=== PATIENT | male | born 1955 | race Caucasian/White ===

== ENCOUNTER 2019-12-15 16:53 | Emergency (ER) | payer BC, OTHER ==
--- NOTE | 2019-12-15 17:36 | ERPHSYRPT ---
- History of Present Illness Time Seen by Provider: 12/15/19 17:00 Source: patient Exam Limitations: no limitations Patient Subjective Stated Complaint: Pt states "I twisted my knee a couple of weeks ago and about two hours ago I was stepping out of a truck and felt a pop and it really really hurts." Triage Nursing Assessment: Pt presented alert and oriented X 3, skin pwd Pt ambulates with a limp. no swelling or bruising noted to left knee. Physician History: twisted L knee on ladder 2 wks ago. pain but got better. Today Twisted knee agin flet/heard "pop" and pain inL knee agin. Increased wit flex/ext and wt bearing. Method of Injury: twisted Occurred: just prior to arrival Quality: sharpness, throbbing Severity of Pain-Max: moderate Severity of Pain-Current: moderate Lower Extremities Pain: knee: left (stable, quad mech ok, no effusion, Pos drawer sign) Modifying Factors: Improves With: movement Associated Symptoms: popping sensation Allergies/Adverse Reactions: No Known Drug Allergies Allergy (Verified 12/15/19 17:05) Home Medications: Carvedilol 12.5 mg [Coreg 12.5 mg] 12.5 mg PO DAILY 12/15/19 [History] Clopidogrel Bisulfate [Clopidogrel] 75 mg PO DAILY 12/15/19 [History] Fenofibrate,Micronized [Fenofibrate] 134 mg PO DAILY 12/15/19 [History] Rosuvastatin Calcium [Crestor] 10 mg PO DAILY 12/15/19 [History] Hx Tetanus, Diphtheria Vaccination/Date Given: No Hx Influenza Vaccination/Date Given: Yes Hx Pneumococcal Vaccination/Date Given: No Immunizations Up to Date: Yes Travel Risk - International Travel Have you traveled outside of the country in past 3 weeks: No Have you or anyone close to you been diagnosed with or: No Do your reside in a community with a known COVID-19 case?: Yes If Yes where:: [place] - Coronavirus Screening Has patient experienced Coronavirus symptoms: No - Review of Systems Constitutional: No Fever, No Chills Eyes: No Symptoms Ears, Nose, & Throat: No Symptoms Respiratory: No Cough, No Dyspnea Cardiac: No Chest Pain, No Edema, No Syncope Abdominal/Gastrointestinal: No Abdominal Pain, No Nausea, No Vomiting, No Diarrhea Genitourinary Symptoms: No Dysuria Musculoskeletal: Joint Pain, No Back Pain, No Neck Pain Skin: No Rash Neurological: No Dizziness, No Focal Weakness, No Sensory Changes Psychological: No Symptoms Endocrine: No Symptoms All Other Systems: Reviewed and Negative - Past Medical History Pertinent Past Medical History: Yes Respiratory History: No Pertinent History Endocrine Medical History: No Pertinent History Musculoskeletal History: No Pertinent History GI Medical History: Diverticulosis History: No Pertinent History Psycho-Social History: No Pertinent History Male Reproductive Disorders: No Pertinent History Other Medical History: left bundle branch block. htn - Past Surgical History Past Surgical History: Yes Other Surgical History: carpal tunnel - Social History Smoking Status: Current every day smoker How long have you smoked: years Exposure to second hand smoke: Yes Drug Use: none Patient Lives Alone: No - Nursing Vital Signs Nursing Vital Signs: Initial Vital Signs Temperature 98.2 F 12/15/19 16:59 Pulse Rate 77 12/15/19 16:59 Respiratory Rate 20 12/15/19 16:59 Blood Pressure 161/83 12/15/19 16:59 O2 Sat by Pulse Oximetry 97 12/15/19 16:59 Pain Scale Pain Intensity 6 - Physical Exam General Appearance: mild distress, alert Eyes, Ears, Nose, Throat Exam: moist mucous membranes Neck Exam: non-tender, supple Cardiovascular/Respiratory Exam: chest non-tender, normal breath sounds, regular rate/rhythm, no respiratory distress Gastrointestinal/Abdominal Exam: non-tender, guarding Back Exam: normal inspection, No vertebral tenderness Knees Exam: right knee: non-tender, normal inspection, normal range of motion, no evidence of injury, left knee: pain (pain with ext/flex), soft tissue tenderness DTR - Lower Extremities Exam: knee (R): 2+, knee (L): 2+ Neuro/Tendon Exam: normal sensation, normal motor functions Mental Status Exam: alert, oriented x 3, cooperative Skin Exam: normal color, warm, dry SpO2 Interpretation: normal SpO2: 97 O2 Delivery: Room Air - Course Nursing assessment & vital signs reviewed: Yes - Radiology Exams Knee X-ray Interpretation: Interpreted by me, No Fracture, No Subluxation, Nml Soft Tissues Ordered Tests: Active Orders 24 hr Category Date Time Status Splint STAT Care 12/15/19 17:29 Active KNEE (3 VIEWS) Stat Exams 12/15/19 17:02 Taken - Progress Progress: unchanged - Departure Departure Disposition: Home Clinical Impression: Strain of left knee Condition: Stable Critical Care Time: No Referrals: JONG NEFF [NON-STAFF PHY W/O PRIVILEGES] - Instructions: Knee Sprain (DC), Knee Pain (DC) Prescriptions: Hydrocodone/APAP 5-325 Tab^^^ [Cardwell 5-325 Tablet^^^] 1 tab PO Q6HPRN PRN #10 tablet MDD 6 PRN Reason: Pain
[2019-12-15 17:56] VITALS: O2SAT 98
[2019-12-15 18:08] VITALS: BP 132/79; PULSE 96
--- NOTE | 2019-12-15 19:28 | XRAY ---
Indication: Pain following twisting injury. Comparison: None 3 view left knee demonstrates mild medial joint space narrowing and mild vascular calcifications. No other bony, articular, or soft tissue abnormalities.
== END 2019-12-15 18:08 | disposition home or self-care (01) ==
LOC: ED 16:53
DX: S83.92XA Sprain of unspecified site of left knee, initial encounter (principal); M25.562 Pain in left knee; X50.9XXA Other and unspecified overexertion or strenuous movements or postures, initial encounter
CPT/HCPCS: 73562; 99283; L1830

== ENCOUNTER 2022-02-10 09:24 | Emergency (ER) | payer MEDICARE ==
[2022-02-10 09:51] LABS: Absolute Neutrophil Ct (ANC) 9.72 x10^3/uL (1.4-6.9); Basophil (Absolute #) 0.07 x10^3/uL (0-0.4); Eosinophil % 4.7 % (0.00-5.0); Hematocrit 43.6 % (42-50); Hemoglobin 14.8 g/dL (12.5-18.0); Lymphocyte (Absolute #) 1.32 x10^3/uL (1.0-4.6); Lymphocytes % 10.2 % (24.0-44.0); Mean Cell Volume 93.8 fL (78-100); Mean Corpuscular Hemoglobin 31.8 pg (26-32); Mean Corpuscular Hgb Concent. 33.9 g/dL (32-36); Mean Platelet Volume 10.2 fL (7.5-11.0); Monocyte (Absolute #) 1.14 x10^3/uL (0.0-1.3); Monocytes % 8.8 % (0.0-12.0); Neutrophil % 75.4 % (36.0-66.0); Platelet Count 220 x10^3/uL (150-450); Red Blood Count 4.65 x10^6/uL (4.1-5.6); Red Cell Distribution Width 13.4 % (11.5-14.0); White Blood Count 12.9 x10^3/uL (4.0-10.5)
--- NOTE | 2022-02-10 10:07 | XRAY ---
Indication: Short of breath. Comparison: None Portable chest hyperinflated with chronic interstitial lung markings. No focal infiltrate, consolidation, or large effusion. Heart not enlarged for AP portable technique with incidental cardiac valve replacement. Bony thorax intact with mild osteopenia and degenerative changes. Impression: Nonacute chest with chronic features.
[2022-02-10 10:13] LABS: ALBUMIN 4.4 g/dL (3.5-5.0); ALKALINE PHOSPHATASE 75 U/L (38-126); AMYLASE 83 U/L (30-110); ANION GAP 14.9 MEQ/L (5-15); BLOOD UREA NITROGEN 18 mg/dL (9-20); CHLORIDE 104 mmol/L (98-107); Calcium 9.5 mg/dL (8.4-10.2); Carbon Dioxide 21 mmol/L (22-30); Creatinine 1 1.25 mg/dL (0.66-1.25); EST GLOMERULAR FILTRATION RATE > 60.0 ML/MIN; Glucose 120 mg/dL (74-106); INR 1.07 (0.8-3.0); LIPASE 61 U/L (23-300); NT PRO BNP 1500 pg/mL (0-900); PROTIME 11.3 SECONDS (9.4-12.5); PTT 30.8 SECONDS (25.1-36.5); Potassium 4.1 mmol/L (3.5-5.1); SGOT/AST 24 U/L (17-59); SGPT/ALT 15 U/L (0-50); SODIUM 136 mmol/L (137-145); Total Protein 7.8 g/dL (6.3-8.2)
[2022-02-10 10:15] LABS: D-DIMER QUANTITATIVE 1.21 mg/L (0.0-0.50)
[2022-02-10 10:17] LABS: Erythrocyte Sedimentation Rate 10 mm/hr (0-15)
[2022-02-10 10:30] LABS: INFLUENZA A NEGATIVE (NEGATIVE); INFLUENZA B NEGATIVE (NEGATIVE); RESPIRATORY SYNCTIAL VIRUS NEGATIVE (Negative); SARS-CoV-2 Xpert Express NEGATIVE (NEGATIVE)
[2022-02-10] MEDS ORDERED: Lasix 40 MG/4 ML ONE (11:01)
[2022-02-10] MEDS: Lasix 40 MG/4 ML IV ONE (11:03)
--- NOTE | 2022-02-10 11:07 | XRAY ---
Indication: Short of breath. Multiple contiguous axial images obtained through the chest using 100 cc Isovue 370 contrast and PE protocol. Comparison: None Good opacification of the pulmonary arteries to include the lobar and segmental branches. Minimal respiration artifact limits evaluation of the more distal segmental branches. No pulmonary embolus. Heart not enlarged with scattered coronary calcifications and prior aortic valve replacement. Aorta is minimally arteriosclerotic without aneurysm/dissection. A few tiny mediastinal and right hilar calcified nodes. No pathologic mediastinal/hilar lymphadenopathy. Lungs demonstrate mild scattered fibrosis/scarring, greatest medial right lower lobe. Tiny right upper and left lower lobe calcified granulomas. No suspicious pulmonary mass, infiltrate, effusion, or pneumothorax. Bony thorax intact with mild osteopenia and moderate degenerative changes throughout the spine. Limited upper abdomen demonstrates mild diffuse fatty liver. Impression: 1. Pulmonary embolus evaluation limited by respiration artifact. No obvious pulmonary embolus or acute cardiopulmonary abnormalities. 2. Incidental scattered fibrosis/scarring, fatty liver, chronic bony findings, and old granulomatous disease.
[2022-02-10 11:47] LABS: Appearance CLEAR (CLEAR); Bilirubin NEGATIVE (NEGATIVE); Dipstick done @ ? MAIN LAB; Glucose NEGATIVE (NEGATIVE); Ketones NEGATIVE (NEGATIVE); Nitrite NEGATIVE (NEGATIVE); Protein,Urine Dip 100 (Negative); RBC NEGATIVE Ery/ul (0-5); Specific Gravity 1.015 (1.005-1.025); Urobilinogen 0.2 mg/dL (0-1)
[2022-02-10 11:51] LABS: Bacteria RARE /HPF (NEGATIVE); Epithelial Cells RARE /HPF (FEW); RBC 0-2 /HPF (0-2); Urine Cultured Indicated? NO; WBC 0-2 /HPF (0-5)
[2022-02-10 12:37] VITALS: BP 133/67; PULSE 66; O2SAT 98
--- NOTE | 2022-02-10 12:49 | ERPHSYRPT ---
- History of Present Illness Time Seen by Provider: 02/10/22 09:35 Historian: patient Exam Limitations: no limitations Patient Subjective Stated Complaint: Pt was in cardiac rehab and his oxygen was running approx 85% on room air and they couldn't raise it, pt is wearing a life vest and states that his EF is 29% Triage Nursing Assessment: Pt brought over from cardiac rehab, hypertensive, denies pain, cough with thick clear sputum, wearing a life vest, PVC's, states that he has a "tickle" in his throat that he didn't have, had valve replaced l ast month 01/09/2022, stents placed on 12/22/2021, states that he has been around covid but has never been tested, pulses normal, skin n,w,diaphoretic Physician History: Patient is a 67-year-old male who was at cardiac rehab and developed some hypoxia O2 sats into the high 80s. 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 He also had some stents placed at the time of the TAVR recently. He denies any chest pain he denies any shortness of breath but was brought here because of his low O2 sat his ejection fraction reportedly is 29%. Timing/Duration: today Activities at Onset: other (In cardiac rehab) Associated Symptoms: shortness of breath Nitro Today/Relief: no nitro taken today Aspirin Treatment Today: 81 mg x 1 Allergies/Adverse Reactions: No Known Drug Allergies Allergy (Verified 02/10/22 09:42) Home Medications: Carvedilol 12.5 mg [Coreg 12.5 mg] 3.25 mg PO DAILY 12/15/19 [History] Clopidogrel Bisulfate [Clopidogrel] 75 mg PO DAILY 12/15/19 [History] Fenofibrate,Micronized [Fenofibrate] 134 mg PO DAILY 12/15/19 [History] Rosuvastatin Calcium [Crestor] 20 mg PO DAILY 12/15/19 [History] Aspirin EC 81 mg [Ecotrin 81 mg] 81 mg PO DAILY 02/10/22 [History] Hydrochlorothiazide 25 mg [hydroDIURIL 25 MG] 25 mg PO DAILY 02/10/22 [History] Metformin HCl 500 mg [Glucophage 500 MG] 500 mg PO DAILY 02/10/22 [History] Sacubitril/Valsartan [Entresto 24 mg-26 mg Tablet] 0.5 tab PO BID 02/10/22 [History] Hx Tetanus, Diphtheria Vaccination/Date Given: No Hx Influenza Vaccination/Date Given: Yes Hx Pneumococcal Vaccination/Date Given: No Travel Risk - International Travel Have you traveled outside of the country in past 3 weeks: No - Coronavirus Screening Are you exhibiting any of the following symptoms?: No Close contact with a COVID-19 positive Pt in past 14-21 Days: No - Vaccine Status Have you recieved a Covid-19 vaccination: Yes Sap Analyst: Moderna - Vaccination Dates Date of 2cond Vaccination (if applicable): 11/2020 - Review of Systems Constitutional: No Fever, No Chills Eyes: No Symptoms Ears, Nose, & Throat: No Symptoms Respiratory: Dyspnea, No Cough Cardiac: No Chest Pain, No Edema, No Syncope Abdominal/Gastrointestinal: No Abdominal Pain, No Nausea, No Vomiting, No Diarrhea Genitourinary Symptoms: No Dysuria Musculoskeletal: No Back Pain, No Neck Pain Skin: No Rash Neurological: No Dizziness, No Focal Weakness, No Sensory Changes Psychological: No Symptoms Endocrine: No Symptoms All Other Systems: Reviewed and Negative - Past Medical History Pertinent Past Medical History: Yes Cardiac History: Arrhythmia, Other Respiratory History: No Pertinent History Endocrine Medical History: No Pertinent History Musculoskeletal History: No Pertinent History GI Medical History: Diverticulosis History: No Pertinent History Psycho-Social History: No Pertinent History Male Reproductive Disorders: No Pertinent History Other Medical History: left bundle branch block. htn - Past Surgical History Past Surgical History: Yes Cardiac: Cardiac Stent, Valve Replacement Other Surgical History: carpal tunnel - Social History Smoking Status: Current every day smoker How long have you smoked: years Exposure to second hand smoke: Yes Drug Use: none Patient Lives Alone: No - Nursing Vital Signs Nursing Vital Signs: Initial Vital Signs Temperature 97.9 F 02/10/22 09:29 Pulse Rate 83 02/10/22 09:29 Respiratory Rate 26 H 02/10/22 09:29 Blood Pressure 148/78 02/10/22 09:29 O2 Sat by Pulse Oximetry 90 L 02/10/22 09:29 Pain Scale Pain Intensity 0 - Physical Exam General Appearance: no apparent distress, alert Eye Exam: PERRL/EOMI, eyes nml inspection Ears, Nose, Throat Exam: normal ENT inspection, moist mucous membranes Neck Exam: normal inspection, non-tender, supple, full range of motion Respiratory Exam: normal breath sounds, lungs clear, No respiratory distress Cardiovascular Exam: regular rate/rhythm, normal heart sounds, other (Patient has a LifeVest in place.) Gastrointestinal/Abdomen Exam: soft, No tenderness, No mass Back Exam: normal inspection, No CVA tenderness, No vertebral tenderness Extremity Exam: normal inspection, normal range of motion Neurologic Exam: alert, oriented x 3, cooperative, normal mood/affect, sensation nml, No motor deficits Skin Exam: normal color, warm, dry SpO2: 98 - Course Nursing assessment & vital signs reviewed: Yes EKG Interpreted by Me: RATE (81), Sinus Rhythm, Left Bundle Branch Block, Non- specific ST Changes, Other (ST segment elevation secondary to interventricular conduction defect) - Radiology Exams Chest X-ray Interpretation: Reviewed by me - CT Exams Chest CT Interpretation: Other (No pulmonary emboli no other significant abnormality) Ordered Tests: Active Orders 24 hr Category Date Time Status Pc Installation Engineer STAT Care 02/10/22 09:30 Active EKG-ER Only STAT Care 02/10/22 09:29 Active IV Insertion STAT Care 02/10/22 09:29 Active Oxygen-ED Only Nasal Cannula 2 lpm Care 02/10/22 09:29 Active CHEST 1 VIEW (PORTABLE) Stat Exams 02/10/22 09:29 Completed CHEST WITH CONTRAST [CT] Stat Exams 02/10/22 10:17 Completed AMYLASE Stat Lab 02/10/22 09:30 Completed CBC W DIFF Stat Lab 02/10/22 09:29 Completed CMP Stat Lab 02/10/22 09:30 Completed D-DIMER QUANTITATIVE Stat Lab 02/10/22 09:30 Completed Erythrocyte Sedimentation Rate Stat Lab 02/10/22 09:29 Completed LIPASE Stat Lab 02/10/22 09:30 Completed Lactic Acid Stat Lab 02/10/22 09:29 Completed Lactic Acid Stat Lab 02/10/22 11:39 Received MAGNESIUM Stat Lab 02/10/22 09:30 Completed NT PRO BNP Stat Lab 02/10/22 09:30 Completed PROTIME WITH INR Stat Lab 02/10/22 09:30 Completed PTT Stat Lab 02/10/22 09:30 Completed TROPONIN Q3H Lab 02/10/22 09:30 Completed TROPONIN Q3H Lab 02/10/22 12:30 Ordered TROPONIN Q3H Lab 02/10/22 15:30 Ordered TROPONIN Q3H Lab 02/10/22 18:30 Ordered TROPONIN Q3H Lab 02/10/22 21:30 Ordered UA W/RFX CULTURE Stat Lab 02/10/22 11:35 Completed Medication Summary Discontinued Medications Generic Name Dose Route Start Last Admin Trade Name Kai PRN Reason Stop Dose Admin Furosemide 20 mg 02/11/22 10:00 Furosemide 20 Mg/Vial IV 02/11/22 10:01 ONCE ONE Furosemide Confirm 02/10/22 11:01 Furosemide 40 Mg/4 Ml Vial Administered 02/10/22 11:02 Dose 40 mg .ROUTE .STK-MED ONE Furosemide 20 mg 02/10/22 11:02 02/10/22 11:03 Furosemide 40 Mg/4 Ml Vial IV 02/10/22 11:03 20 mg STAT ONE Administration Lab/Rad Data: Laboratory Result Diagrams 02/10/22 09:29 02/10/22 09:30 Laboratory Results 02/10/22 02/10/22 02/10/22 Range/Units 11:35 09:45 09:30 WBC (4.0-10.5) x10^3/uL RBC (4.1-5.6) x10^6/uL Hgb (12.5-18.0) g/dL Hct (42-50) % MCV (78-100) fL MCH (26-32) pg MCHC (32-36) g/dL RDW (11.5-14.0) % Plt Count (150-450) x10^3/uL MPV (7.5-11.0) fL Gran % (36.0-66.0) % Immature Gran % (Auto) (0.00-0.4) % Nucleat RBC Rel Count (0.00-0.1) % Eos # (Auto) (0-0.5) x10^3/uL Immature Gran # (Auto) (0.00-0.03) x10^3u/L Absolute Lymphs (auto) (1.0-4.6) x10^3/uL Absolute Monos (auto) (0.0-1.3) x10^3/uL Absolute Nucleated RBC (0.00-0.01) x10^3u/L Lymphocytes % (24.0-44.0) % Monocytes % (0.0-12.0) % Eosinophils % (0.00-5.0) % Basophils % (0.0-0.4) % Absolute Granulocytes (1.4-6.9) x10^3/uL Basophils # (0-0.4) x10^3/uL ESR (0-15) mm/hr PT (9.4-12.5) SECONDS INR (0.8-3.0) APTT (25.1-36.5) SECONDS D-Dimer (0.0-0.50) mg/L Sodium (137-145) mmol/L Potassium (3.5-5.1) mmol/L Chloride (98-107) mmol/L Carbon Dioxide (22-30) mmol/L Anion Gap (5-15) MEQ/L BUN (9-20) mg/dL Creatinine (0.66-1.25) mg/dL Estimated GFR ML/MIN Glucose (74-106) mg/dL Lactic Acid (0.4-2.0) Calcium (8.4-10.2) mg/dL Magnesium (1.6-2.3) mg/dL Total Bilirubin (0.2-1.3) mg/dL AST (17-59) U/L ALT (0-50) U/L Alkaline Phosphatase (38-126) U/L Troponin I 0.021 (0.000-0.034) ng/mL NT-Pro-B Natriuret Pep (0-900) pg/mL Serum Total Protein (6.3-8.2) g/dL Albumin (3.5-5.0) g/dL Amylase (30-110) U/L Lipase (23-300) U/L Urinalys Dipstick Clnc MAIN LAB Urine Color YELLOW (YELLOW) Urine Appearance CLEAR (CLEAR) Urine pH 7.0 (5-6) Ur Specific [place] 1.015 (1.005-1.025) POC Urine Protein Conf 100 (Negative) Urine Ketones NEGATIVE (NEGATIVE) Urine Nitrite NEGATIVE (NEGATIVE) Urine Bilirubin NEGATIVE (NEGATIVE) Urine Urobilinogen 0.2 (0-1) mg/dL Urine Leukocytes NEGATIVE (NEGATIVE) Urine WBC (Auto) 0-2 (0-5) /HPF Urine RBC (Auto) 0-2 (0-2) /HPF U Epithel Cells (Auto) RARE (FEW) /HPF Urine Bacteria (Auto) RARE (NEGATIVE) /HPF Urine RBC NEGATIVE (0-5) Paramjit/ul Ur Culture Indicated? NO Urine Glucose NEGATIVE (NEGATIVE) mg/dL Influenza Type A Ag NEGATIVE (NEGATIVE) Influenza Type B Ag NEGATIVE (NEGATIVE) RSV (PCR) NEGATIVE (Negative) SARS-CoV-2 (PCR) NEGATIVE (NEGATIVE) 02/10/22 02/10/22 02/10/22 Range/Units 09:30 09:30 09:29 WBC (4.0-10.5) x10^3/uL RBC (4.1-5.6) x10^6/uL Hgb (12.5-18.0) g/dL Hct (42-50) % MCV (78-100) fL MCH (26-32) pg MCHC (32-36) g/dL RDW (11.5-14.0) % Plt Count (150-450) x10^3/uL MPV (7.5-11.0) fL Gran % (36.0-66.0) % Immature Gran % (Auto) (0.00-0.4) % Nucleat RBC Rel Count (0.00-0.1) % Eos # (Auto) (0-0.5) x10^3/uL Immature Gran # (Auto) (0.00-0.03) x10^3u/L Absolute Lymphs (auto) (1.0-4.6) x10^3/uL Absolute Monos (auto) (0.0-1.3) x10^3/uL Absolute Nucleated RBC (0.00-0.01) x10^3u/L Lymphocytes % (24.0-44.0) % Monocytes % (0.0-12.0) % Eosinophils % (0.00-5.0) % Basophils % (0.0-0.4) % Absolute Granulocytes (1.4-6.9) x10^3/uL Basophils # (0-0.4) x10^3/uL ESR (0-15) mm/hr PT 11.3 (9.4-12.5) SECONDS INR 1.07 (0.8-3.0) APTT 30.8 (25.1-36.5) SECONDS D-Dimer 1.21 H* (0.0-0.50) mg/L Sodium 136 L (137-145) mmol/L Potassium 4.1 (3.5-5.1) mmol/L Chloride 104 (98-107) mmol/L Carbon Dioxide 21 L (22-30) mmol/L Anion Gap 14.9 (5-15) MEQ/L BUN 18 (9-20) mg/dL Creatinine 1.25 (0.66-1.25) mg/dL Estimated GFR > 60.0 ML/MIN Glucose 120 H (74-106) mg/dL Lactic Acid 3.1 H (0.4-2.0) Calcium 9.5 (8.4-10.2) mg/dL Magnesium 2.0 (1.6-2.3) mg/dL Total Bilirubin 0.70 (0.2-1.3) mg/dL AST 24 (17-59) U/L ALT 15 (0-50) U/L Alkaline Phosphatase 75 (38-126) U/L Troponin I (0.000-0.034) ng/mL NT-Pro-B Natriuret Pep 1500 H (0-900) pg/mL Serum Total Protein 7.8 (6.3-8.2) g/dL Albumin 4.4 (3.5-5.0) g/dL Amylase 83 (30-110) U/L Lipase 61 (23-300) U/L Urinalys Dipstick Clnc Urine Color (YELLOW) Urine Appearance (CLEAR) Urine pH (5-6) Ur Specific [place] (1.005-1.025) POC Urine Protein Conf (Negative) Urine Ketones (NEGATIVE) Urine Nitrite (NEGATIVE) Urine Bilirubin (NEGATIVE) Urine Urobilinogen (0-1) mg/dL Urine Leukocytes (NEGATIVE) Urine WBC (Auto) (0-5) /HPF Urine RBC (Auto) (0-2) /HPF U Epithel Cells (Auto) (FEW) /HPF Urine Bacteria (Auto) (NEGATIVE) /HPF Urine RBC (0-5) Paramjit/ul Ur Culture Indicated? Urine Glucose (NEGATIVE) mg/dL Influenza Type A Ag (NEGATIVE) Influenza Type B Ag (NEGATIVE) RSV (PCR) (Negative) SARS-CoV-2 (PCR) (NEGATIVE) 02/10/22 Range/Units 09:29 WBC 12.9 H (4.0-10.5) x10^3/uL RBC 4.65 (4.1-5.6) x10^6/uL Hgb 14.8 (12.5-18.0) g/dL Hct 43.6 (42-50) % MCV 93.8 (78-100) fL MCH 31.8 (26-32) pg MCHC 33.9 (32-36) g/dL RDW 13.4 (11.5-14.0) % Plt Count 220 (150-450) x10^3/uL MPV 10.2 (7.5-11.0) fL Gran % 75.4 H (36.0-66.0) % Immature Gran % (Auto) 0.4 (0.00-0.4) % Nucleat RBC Rel Count 0.0 (0.00-0.1) % Eos # (Auto) 0.60 H (0-0.5) x10^3/uL Immature Gran # (Auto) 0.05 H (0.00-0.03) x10^3u/L Absolute Lymphs (auto) 1.32 (1.0-4.6) x10^3/uL Absolute Monos (auto) 1.14 (0.0-1.3) x10^3/uL Absolute Nucleated RBC 0.00 (0.00-0.01) x10^3u/L Lymphocytes % 10.2 L (24.0-44.0) % Monocytes % 8.8 (0.0-12.0) % Eosinophils % 4.7 (0.00-5.0) % Basophils % 0.5 (0.0-0.4) % Absolute Granulocytes 9.72 H (1.4-6.9) x10^3/uL Basophils # 0.07 (0-0.4) x10^3/uL ESR 10 (0-15) mm/hr PT (9.4-12.5) SECONDS INR (0.8-3.0) APTT (25.1-36.5) SECONDS D-Dimer (0.0-0.50) mg/L Sodium (137-145) mmol/L Potassium (3.5-5.1) mmol/L Chloride (98-107) mmol/L Carbon Dioxide (22-30) mmol/L Anion Gap (5-15) MEQ/L BUN (9-20) mg/dL Creatinine (0.66-1.25) mg/dL Estimated GFR ML/MIN Glucose (74-106) mg/dL Lactic Acid (0.4-2.0) Calcium (8.4-10.2) mg/dL Magnesium (1.6-2.3) mg/dL Total Bilirubin (0.2-1.3) mg/dL AST (17-59) U/L ALT (0-50) U/L Alkaline Phosphatase (38-126) U/L Troponin I (0.000-0.034) ng/mL NT-Pro-B Natriuret Pep (0-900) pg/mL Serum Total Protein (6.3-8.2) g/dL Albumin (3.5-5.0) g/dL Amylase (30-110) U/L Lipase (23-300) U/L Urinalys Dipstick Clnc Urine Color (YELLOW) Urine Appearance (CLEAR) Urine pH (5-6) Ur Specific [place] (1.005-1.025) POC Urine Protein Conf (Negative) Urine Ketones (NEGATIVE) Urine Nitrite (NEGATIVE) Urine Bilirubin (NEGATIVE) Urine Urobilinogen (0-1) mg/dL Urine Leukocytes (NEGATIVE) Urine WBC (Auto) (0-5) /HPF Urine RBC (Auto) (0-2) /HPF U Epithel Cells (Auto) (FEW) /HPF Urine Bacteria (Auto) (NEGATIVE) /HPF Urine RBC (0-5) Paramjit/ul Ur Culture Indicated? Urine Glucose (NEGATIVE) mg/dL Influenza Type A Ag (NEGATIVE) Influenza Type B Ag (NEGATIVE) RSV (PCR) (Negative) SARS-CoV-2 (PCR) (NEGATIVE) - Progress Progress: improved Air Movement: good Progress Note: 02/10/22 12:44 Patient's O2 sat on room air is now running in the mid to high 90s the only treatment he received was 20 mg of Lasix IV but his O2 sat had improved prior to that. Blood Culture(s) Obtained: No Antibiotics given: No Discussed with : Hans (Dr. Romo informed and agrees to his discharge thank you) - Departure Departure Disposition: Home Clinical Impression: Hypoxia Condition: Stable Critical Care Time: No Referrals: JASPER FARIA MD [Primary Care Provider] - Follow up/PCP as directed Instructions: Shortness of Breath (Dyspnea) (DC)
[2022-02-11] MEDS ORDERED: Lasix 20 MG/2 ML IV ONE (10:00)
== END 2022-02-10 13:00 | disposition home or self-care (01) ==
LOC: ED 09:24
DX: R09.02 Hypoxemia (principal); I10 Essential (primary) hypertension; Z72.0 Tobacco use; Z79.899 Other long term (current) drug therapy; Z20.828 Contact with and (suspected) exposure to other viral communicable diseases; Z95.4 Presence of other heart-valve replacement
CPT/HCPCS: 0241U; 36000; 36415; 71045; 71260; 80053; 81015; 82150; 83605; 83690; 83735; 83880; 84484; 85025; 85379; 85610; 85652; 85730; 93005; 93041; 96374; 99284; J1940

== ENCOUNTER → 2022-02-10 | Emergency (ER) | payer MEDICARE | LOC: ED 09:26 | DX: Z53.8 Procedure and treatment not carried out for other reasons (principal) ==

== ENCOUNTER 2022-11-16 05:50 | Day surgery (SDC) | payer MEDICARE ==
[2022-11-16] MEDS: Lactated Ringers 1,000 ML IV SCH (06:07)
[2022-11-16] MEDS ORDERED: DIPRIVAN 200 MG/20 ML IV ONE (06:57)
[2022-11-16] MEDS ORDERED: Versed 2 MG/2 ML Injection ONE (07:23)
[2022-11-16 08:29] VITALS: PULSE 59
[2022-11-16 08:44] VITALS: BP 128/67; O2SAT 99
--- NOTE | 2022-11-16 14:29 | OP ---
SURGERY DATE/TIME: 11/16/2022 0732 PREOPERATIVE DIAGNOSIS: Screening exam. POSTOPERATIVE DIAGNOSIS: Sigmoid diverticulosis otherwise normal colon. PROCEDURE: Colonoscopy. SURGEON: Dr. Mcghee. ANESTHESIA: MAC. Medications given by anesthesia department. HISTORY: The patient is a 67-year-old white male patient now presenting for screening colonoscopy. He was appraised of the risks of the procedure including the risk of perforation, phlebitis, untoward reaction to medication, bleeding and missed lesions. The patient verbalized his understanding and desired to have the procedure performed. DESCRIPTION OF PROCEDURE: The patient was given the medications by the anesthesia department. He had continuous pulse oximetry, ECG monitoring and intermittent blood pressure monitoring during the examination. He was placed in the left lateral decubitus position. A digital rectal examination was performed and revealed normal anal sphincter tone, no masses and a normal prostate. The flexible Olympus pediatric colonoscope was used to intubate the rectum. A view of the colon was developed sequentially to the cecum. Upon insertion and withdrawal, including a retroflex view in the rectum was noted moderate sigmoid diverticulosis otherwise no other mucosal lesions were encountered. The scope was removed from the patient who tolerated the procedure well and was sent back to OP recovery in good condition. The prep was noted to be fair to good.
== END 2022-11-16 08:59 | disposition home or self-care (01) ==
LOC: SDC 05:50
PROVIDERS: ATTEND Family Medicine
DX: Z12.11 Encounter for screening for malignant neoplasm of colon (principal); K57.30 Diverticulosis of large intestine without perforation or abscess without bleeding; I10 Essential (primary) hypertension; Z79.899 Other long term (current) drug therapy
CPT/HCPCS: 82947; G0121; J2250; J2704